=== PATIENT | female | born 1950 | race Caucasian/White ===

== ENCOUNTER 2019-04-05 07:46 | Emergency (ER) | payer MEDICARE ==
[~2019-04-05] VITALS: Ht 160 cm; Wt 78.0 kg
[2019-04-05] MEDS ORDERED: CT SWABBABLE VALVE TRANS SET 1 EA INFUS.SET MC ONE (08:07)
[2019-04-05] MEDS ORDERED: IV NS 0.9% 250 ML IV ONE (08:07)
[2019-04-05] MEDS ORDERED: IOHEXOL-350 100 ML VIAL IV ONE (08:07)
[2019-04-05 08:08] LABS: BASOPHILS % (AUTO) 0.8 % (0.0-2.0); EOSINOPHILS % (AUTO) 2.6 % (0.0-6.0); HEMATOCRIT 46 % (33-45); HEMOGLOBIN 15.6 g/dL (11.5-14.8); LYMPHOCYTES # (AUTO) 2.2 /CMM (0.8-4.8); LYMPHOCYTES % (AUTO) 36.3 % (20.0-44.0); MEAN CORPUSCULAR HGB CONC 34 g/dl (31.0-36.0); MEAN CORPUSCULAR VOLUME 89 fL (82-100); MONOCYTES # (AUTO) 0.5 /CMM (0.1-1.30); MONOCYTES % (AUTO) 7.9 % (2.0-12.0); NEUTROPHILS # (AUTO) 3.1 /CMM (1.8-8.9); NEUTROPHILS % (AUTO) 52.4 % (43.0-81.0); PLATELET COUNT (AUTO) 310 /CMM (150-450); RED BLOOD CELL COUNT(AUTO) 5.15 MIL/uL (4.0-5.2); WHITE BLOOD COUNT (AUTO) 5.9 K/uL (4.3-11.0)
[2019-04-05 08:12] LABS: CARBON DIOXIDE 30 mmol/L (21-32); CHLORIDE 104 mmol/L (98-107); CREATININE 0.8 mg/dL (0.6-1.3); GLUCOSE 139 mg/dL (74-106); POTASSIUM 3.4 mmol/L (3.5-5.1); SODIUM SERUM 140 mmol/L (136-145); UREA NITROGEN, BLOOD 16 mg/dL (7-18)
[2019-04-05 08:37] LABS: CHOLESTEROL 204 mg/dL (<200); HDL CHOLESTEROL 56 mg/dL (40-60); LDL 137 mg/dL (0-99); TRIGLYCERIDES 127 mg/dL (30-150)
[2019-04-05] MEDS ORDERED: ASPIRIN 81 MG TAB.CHEW ONE (09:10)
[2019-04-05] MEDS: IV NS 0.9% 500 ML BAG IV ONE (09:11)
[2019-04-05] MEDS: ASPIRIN 81 MG TAB.CHEW PO ONE (09:20)
[2019-04-05 10:04] VITALS: BP 163/94
== END 2019-04-05 09:30 | disposition left against medical advice (07) ==
LOC: ER 07:49
DX: G45.9 Transient cerebral ischemic attack, unspecified (principal); R20.2 Paresthesia of skin; I10 Essential (primary) hypertension; E11.9 Type 2 diabetes mellitus without complications; G51.0 Bell's palsy; R07.89 Other chest pain
CPT/HCPCS: 36415; 70450-TC; 70496-TC; 70498-TC; 71045-TC; 80048-TC; 80061-TC; 82962-TC; 84484-TC; 85025-TC; 85730-TC; J7040; J7050; Q9967